=== PATIENT | female | born 1950 | race Two or more races ===

== ENCOUNTER 2020-06-21 06:47 | Inpatient (IN) | payer MEDICAID ==
[~2020-06-21] VITALS: Ht 160 cm; Wt 101.6 kg
[2020-06-21] MEDS ORDERED: DexAMETHasone SOD PHOS 10MG/1ML VIAL INJ IV ONE (07:30)
[2020-06-21] MEDS ORDERED: ONDANSETRON HCL 4 MG/2 ML VIAL ONE (07:44)
[2020-06-21] MEDS ORDERED: ACETAMINOPHEN 500 MG TAB PO ONE ×2 (08:14→08:30)
[2020-06-21] MEDS ORDERED: ONDANSETRON HCL 4 MG/2 ML VIAL IV ONE (08:30)
[2020-06-21 08:59] LABS: Basophils # (auto) 0 10 ^3/uL (0-0.2); Basophils % (auto) 0.2 % (0.0-2.0); Eosinophils # (auto) 0 10 ^3/uL (0-0.8); Hematocrit 42.9 % (36.0-46.0); Hemoglobin 13.9 g/dL (12.2-16.2); Lymphocytes # (auto) 1.9 10 ^3/uL (0.4-5.4); Lymphocytes % (auto) 10.3 % (10.0-50.0); Mean Corpuscular Hgb Conc. 32.4 g/dL (32.0-36.0); Mean Corpuscular Volume 89.4 fL (80.0-100.0); Monocytes # (auto) 1.7 10 ^3/uL (0-1.3); Monocytes % (auto) 9.5 % (0.0-12.0); Neutrophils # (auto) 14.7 10 ^3/uL (1.6-8.6); Nucleated Red Blood Cells % 0.1 %; Platelet Count (auto) 300 10^3/uL (140-450); Red Blood Cells 4.79 10^6/uL (4.0-5.20); Red Cell Distribution Width 13.8 % (11.8-14.3); White Blood Cell 18.4 10^3/uL (4.4-10.8)
[2020-06-21 09:42] LABS: CRP High Sensitivity 9.45 mg/dL (< 0.3)
[2020-06-21] MEDS ORDERED: DOXYCYCLINE 100MG/250ML 250 ML IV ONE (10:30)
[2020-06-21 10:41] LABS: Albumin 2.7 g/dL (3.4-5.0); Calcium 8.7 mg/dL (8.5-10.1); Potassium 3.8 mmol/L (3.5-5.1)
[2020-06-21 10:44] LABS: BUN/Creatinine Ratio 16.7; Bilirubin, Total 0.9 mg/dL (0.2-1.0); Total Protein 7.3 g/dL (6.4-8.2)
[2020-06-21] MEDS ORDERED: FUROSEMIDE 20 MG/2 ML VIAL IV ONE (11:15)
[2020-06-21] MEDS ORDERED: NITROGLYCERIN 0.4 MG SL TAB SL PRN (11:15)
[2020-06-21] MEDS ORDERED: MORPHINE SULFATE 4 MG/ML SYR/VIAL IV PRN (11:15)
[2020-06-21] MEDS ORDERED: MORPHINE SULF INJ 2 MG/ML SYRINGE 1ML IV PRN (11:15)
[2020-06-21] MEDS ORDERED: LORazepam 2MG/ML-1ML VIAL IV PRN (11:15)
[2020-06-21] MEDS ORDERED: VANCOMYCIN PER PHARMACY 1,000 MG IV SCH (11:15)
[2020-06-21] MEDS ORDERED: ENOXAPARIN SOD 100 MG/1 ML SYRINGE SC ONE (11:15)
[2020-06-21] MEDS ORDERED: ACETAMINOPHEN 500 MG TAB PO PRN (11:15)
[2020-06-21] MEDS ORDERED: LACTATED RINGER'S 1,000 ML IV ONE (11:15)
[2020-06-21] MEDS ORDERED: ACETAMINOPHEN 325 MG TAB PO PRN (11:15)
[2020-06-21] MEDS: SODIUM CHLORIDE 0.9% 1,000 ML IV SCH ×2 (12:12→22:52)
[2020-06-21] MEDS: HYDROCORTISONE SOD SUCC 100 MG/2ML INJ VIAL IV SCH ×3 (12:13→22:50)
[2020-06-21] MEDS: PIPERACILLIN-TAZOB 3.375GM 100 ML IV SCH ×3 (12:25→22:51)
[2020-06-21] MEDS ORDERED: DEXTROSE (50%) 50ML SYRG IV PRN (12:30)
[2020-06-21 13:29] LABS: INR 0.97 (0.9-1.15)
[2020-06-21 13:36] LABS: Cholesterol 173 mg/dL (< 200); HDL Cholesterol 39 mg/dL (40-59); LDL Cholesterol 109 mg/dL (< 100); Triglycerides 126 mg/dL (< 150)
[2020-06-21] MEDS ORDERED: ACET1CAP14 PO (13:50)
[2020-06-21] MEDS: ALBUTEROL SULF HFA 90MCG INH 200DOSE IN SCH ×2 (14:00→22:37)
[2020-06-21 14:14] VITALS: BP 119/71
[2020-06-21] MEDS: VANCOMYCIN 500 MG in D5W 5% 100 ML IV SCH (15:29)
[2020-06-21] MEDS: InsuLIN REG 1unit/0.01ml Soln (100units/ml) SC SCH ×2 (17:00→22:39)
[2020-06-21] MEDS: ACCU-CHEK COMFORT CURVE STRIP VI SCH ×2 (17:40→21:54)
[2020-06-21] MEDS: FUROSEMIDE 20 MG/2 ML VIAL IV SCH (17:40)
[2020-06-21] MEDS: ATORVASTATIN 20 MG TAB PO SCH (21:54)
[2020-06-21] MEDS: BUDESONIDE (INHALATION) 180 MCG IH IN SCH (22:37)
[2020-06-21] MEDS: ENOXAPARIN SOD 100 MG/1 ML SYRINGE SC SCH (22:38)
[2020-06-22] MEDS: VANCOMYCIN 500 MG in D5W 5% 100 ML IV SCH ×2 (03:04→17:00)
[2020-06-22 04:34] LABS: Urine Bacteria FEW /hpf (None Seen); Urine Blood Negative /uL (Negative); Urine Hyaline Cast FEW /lpf (0 - 2); Urine Mucus FEW (None Seen); Urine Specific Gravity 1.014 (1.001-1.035); Urine WBC <1 /hpf (0 - 5)
[2020-06-22] MEDS: InsuLIN REG 1unit/0.01ml Soln (100units/ml) SC SCH ×4 (06:46→22:20)
[2020-06-22] MEDS: FUROSEMIDE 20 MG/2 ML VIAL IV SCH ×2 (06:48→19:03)
[2020-06-22] MEDS: PIPERACILLIN-TAZOB 3.375GM 100 ML IV SCH ×3 (06:48→19:04)
[2020-06-22] MEDS: ACCU-CHEK COMFORT CURVE STRIP VI SCH ×4 (06:49→22:13)
[2020-06-22] MEDS: BUDESONIDE (INHALATION) 180 MCG IH IN SCH ×2 (06:49→21:40)
[2020-06-22] MEDS: ALBUTEROL SULF HFA 90MCG INH 200DOSE IN SCH ×3 (06:49→21:40)
[2020-06-22 07:02] LABS: Basophils # (auto) 0.1 10 ^3/uL (0-0.2); Basophils % (auto) 0.4 % (0.0-2.0); Eosinophils # (auto) 0 10 ^3/uL (0-0.8); Hematocrit 40.9 % (36.0-46.0); Hemoglobin 13.4 g/dL (12.2-16.2); Lymphocytes # (auto) 1.1 10 ^3/uL (0.4-5.4); Lymphocytes % (auto) 7.4 % (10.0-50.0); Mean Corpuscular Hemoglobin 29.1 pg (28.0-32.0); Mean Corpuscular Hgb Conc. 32.8 g/dL (32.0-36.0); Mean Corpuscular Volume 88.6 fL (80.0-100.0); Monocytes # (auto) 0.9 10 ^3/uL (0-1.3); Monocytes % (auto) 6.6 % (0.0-12.0); Neutrophils # (auto) 12.2 10 ^3/uL (1.6-8.6); Neutrophils % (auto) 85.6 % (37.0-80.0); Platelet Count (auto) 310 10^3/uL (140-450); Red Blood Cells 4.62 10^6/uL (4.0-5.20); Red Cell Distribution Width 13.9 % (11.8-14.3); White Blood Cell 14.2 10^3/uL (4.4-10.8)
[2020-06-22 07:24] LABS: Albumin 2.5 g/dL (3.4-5.0); Calcium 8.4 mg/dL (8.5-10.1)
[2020-06-22 07:28] LABS: BUN/Creatinine Ratio 12.3; Bilirubin, Total 0.7 mg/dL (0.2-1.0); Total Protein 7.3 g/dL (6.4-8.2)
[2020-06-22] MEDS: HYDROCORTISONE SOD SUCC 100 MG/2ML INJ VIAL IV SCH ×2 (08:23→12:00)
[2020-06-22] MEDS: ENOXAPARIN SOD 100 MG/1 ML SYRINGE SC SCH ×2 (10:13→22:13)
[2020-06-22] MEDS: CHOLECALCIFEROL (VITD3) 2,000 UNIT CAP PO SCH (10:13)
[2020-06-22] MEDS: ZINC SULFATE 220mg CAP or TAB PO SCH (10:13)
[2020-06-22] MEDS: ASCORBIC ACID 1,000 MG TAB PO SCH (10:13)
[2020-06-22 16:50] VITALS: BP 106/53
[2020-06-22] MEDS: SODIUM CHLORIDE 0.9% 1,000 ML IV SCH (17:00)
[2020-06-22 22:00] VITALS: BP 117/56
[2020-06-22] MEDS: ATORVASTATIN 20 MG TAB PO SCH (22:13)
[2020-06-23] MEDS: VANCOMYCIN 500 MG in D5W 5% 100 ML IV SCH (03:00)
[2020-06-23] MEDS: SODIUM CHLORIDE 0.9% 1,000 ML IV SCH ×2 (03:15→16:35)
[2020-06-23 05:00] VITALS: BP 118/70
[2020-06-23] MEDS: PIPERACILLIN-TAZOB 3.375GM 100 ML IV SCH ×4 (06:00→17:26)
[2020-06-23] MEDS: FUROSEMIDE 20 MG/2 ML VIAL IV SCH ×2 (06:00→17:50)
[2020-06-23] MEDS: InsuLIN REG 1unit/0.01ml Soln (100units/ml) SC SCH ×4 (06:26→21:54)
[2020-06-23] MEDS: ACCU-CHEK COMFORT CURVE STRIP VI SCH ×4 (06:26→22:00)
[2020-06-23] MEDS ORDERED: POTASSIUM CHL 20 Meq TABLET PO ONE (06:45)
[2020-06-23 06:50] LABS: Basophils # (auto) 0 10 ^3/uL (0-0.2); Basophils % (auto) 0.3 % (0.0-2.0); Eosinophils # (auto) 0 10 ^3/uL (0-0.8); Eosinophils % (auto) 0.2 % (0.0-7.0); Hematocrit 39.6 % (36.0-46.0); Hemoglobin 13.1 g/dL (12.2-16.2); Lymphocytes # (auto) 2.3 10 ^3/uL (0.4-5.4); Lymphocytes % (auto) 16.6 % (10.0-50.0); Mean Corpuscular Hemoglobin 29.1 pg (28.0-32.0); Monocytes # (auto) 0.9 10 ^3/uL (0-1.3); Monocytes % (auto) 6.4 % (0.0-12.0); Neutrophils # (auto) 10.8 10 ^3/uL (1.6-8.6); Neutrophils % (auto) 76.5 % (37.0-80.0); Nucleated Red Blood Cells % 0.1 %; Platelet Count (auto) 356 10^3/uL (140-450); Red Cell Distribution Width 13.7 % (11.8-14.3); White Blood Cell 14.1 10^3/uL (4.4-10.8)
[2020-06-23 06:58] LABS: Calcium 8.5 mg/dL (8.5-10.1)
[2020-06-23 07:00] LABS: BUN/Creatinine Ratio 10.8
[2020-06-23 07:39] LABS: Potassium 2.8 mmol/L (3.5-5.1)
[2020-06-23 08:00] VITALS: BP 118/70
[2020-06-23 09:00] VITALS: BP 121/64
[2020-06-23] MEDS: DexAMETHasone SOD PHOS 10MG/1ML VIAL INJ IV SCH (09:55)
[2020-06-23] MEDS: ZINC SULFATE 220mg CAP or TAB PO SCH (09:55)
[2020-06-23] MEDS: ASCORBIC ACID 1,000 MG TAB PO SCH (09:55)
[2020-06-23] MEDS: CHOLECALCIFEROL (VITD3) 2,000 UNIT CAP PO SCH (09:56)
[2020-06-23] MEDS: ENOXAPARIN SOD 100 MG/1 ML SYRINGE SC SCH ×2 (09:56→22:00)
[2020-06-23] MEDS: ALBUTEROL SULF HFA 90MCG INH 200DOSE IN SCH ×3 (12:38→23:46)
[2020-06-23] MEDS: BUDESONIDE (INHALATION) 180 MCG IH IN SCH ×2 (12:39→23:46)
[2020-06-23 13:07] VITALS: BP 134/63
[2020-06-23] MEDS ORDERED: POTASSIUM EFFERVESENT TAB 25 MEQ PO ONE (14:15)
[2020-06-23] MEDS: VANCOMYCIN 1GM/250ML 250 ML IV SCH (15:08)
[2020-06-23 17:00] VITALS: BP 115/60
[2020-06-23 20:48] VITALS: BP 107/54
[2020-06-23] MEDS: ATORVASTATIN 20 MG TAB PO SCH (22:00)
[2020-06-24] MEDS: PIPERACILLIN-TAZOB 3.375GM 100 ML IV SCH ×5 (00:17→23:37)
[2020-06-24] MEDS: VANCOMYCIN 1GM/250ML 250 ML IV SCH ×3 (03:00→17:06)
[2020-06-24 05:00] VITALS: BP 102/50
[2020-06-24] MEDS: SODIUM CHLORIDE 0.9% 1,000 ML IV SCH ×2 (05:55→17:07)
[2020-06-24] MEDS: InsuLIN REG 1unit/0.01ml Soln (100units/ml) SC SCH ×4 (06:10→22:00)
[2020-06-24] MEDS: ACCU-CHEK COMFORT CURVE STRIP VI SCH ×4 (06:17→22:53)
[2020-06-24 07:16] LABS: BUN/Creatinine Ratio 9.5; Calcium 8.7 mg/dL (8.5-10.1); Potassium 3.4 mmol/L (3.5-5.1)
[2020-06-24 07:20] LABS: Basophils # (auto) 0 10 ^3/uL (0-0.2); Basophils % (auto) 0.2 % (0.0-2.0); Eosinophils # (auto) 0 10 ^3/uL (0-0.8); Eosinophils % (auto) 0.2 % (0.0-7.0); Hematocrit 37.5 % (36.0-46.0); Hemoglobin 12.6 g/dL (12.2-16.2); Lymphocytes # (auto) 1.9 10 ^3/uL (0.4-5.4); Lymphocytes % (auto) 22.8 % (10.0-50.0); Mean Corpuscular Hemoglobin 29.9 pg (28.0-32.0); Mean Corpuscular Hgb Conc. 33.6 g/dL (32.0-36.0); Mean Corpuscular Volume 89.1 fL (80.0-100.0); Monocytes # (auto) 0.9 10 ^3/uL (0-1.3); Monocytes % (auto) 10.7 % (0.0-12.0); Neutrophils # (auto) 5.5 10 ^3/uL (1.6-8.6); Neutrophils % (auto) 66.1 % (37.0-80.0); Platelet Count (auto) 357 10^3/uL (140-450); Red Blood Cells 4.21 10^6/uL (4.0-5.20); Red Cell Distribution Width 13.8 % (11.8-14.3); White Blood Cell 8.3 10^3/uL (4.4-10.8)
[2020-06-24] MEDS: FUROSEMIDE 20 MG/2 ML VIAL IV SCH ×2 (07:25→17:07)
[2020-06-24] MEDS: BUDESONIDE (INHALATION) 180 MCG IH IN SCH ×2 (07:27→22:10)
[2020-06-24] MEDS: ALBUTEROL SULF HFA 90MCG INH 200DOSE IN SCH ×3 (07:27→22:09)
[2020-06-24] MEDS: ZINC SULFATE 220mg CAP or TAB PO SCH (08:58)
[2020-06-24] MEDS: CHOLECALCIFEROL (VITD3) 2,000 UNIT CAP PO SCH (08:59)
[2020-06-24 09:00] VITALS: BP 125/62
[2020-06-24] MEDS: ASCORBIC ACID 1,000 MG TAB PO SCH (09:00)
[2020-06-24] MEDS: ENOXAPARIN SOD 100 MG/1 ML SYRINGE SC SCH ×2 (09:01→22:53)
[2020-06-24] MEDS: DexAMETHasone SOD PHOS 10MG/1ML VIAL INJ IV SCH (09:02)
[2020-06-24 10:06] VITALS: BP 125/62
[2020-06-24 12:00] VITALS: BP 130/81
[2020-06-24 16:00] VITALS: BP 131/69
[2020-06-24] MEDS ORDERED: POTASSIUM EFFERVESENT TAB 25 MEQ PO ONE (16:15)
[2020-06-24] MEDS: NYSTATIN (MOUTH-THROAT) 500,000 UNITS/5 ML SUSP MT SCH ×2 (17:26→22:52)
[2020-06-24] MEDS: ATORVASTATIN 20 MG TAB PO SCH (22:53)
[2020-06-24 23:30] VITALS: BP 116/64
[2020-06-25] MEDS: VANCOMYCIN 1GM/250ML 250 ML IV SCH ×2 (04:40→17:46)
[2020-06-25] MEDS: FUROSEMIDE 20 MG/2 ML VIAL IV SCH ×2 (05:47→18:13)
[2020-06-25] MEDS: ACCU-CHEK COMFORT CURVE STRIP VI SCH ×4 (05:47→21:56)
[2020-06-25] MEDS: NYSTATIN (MOUTH-THROAT) 500,000 UNITS/5 ML SUSP MT SCH ×4 (05:47→21:55)
[2020-06-25] MEDS: InsuLIN REG 1unit/0.01ml Soln (100units/ml) SC SCH ×4 (05:48→21:58)
[2020-06-25 05:50] LABS: Basophils # (auto) 0 10 ^3/uL (0-0.2); Basophils % (auto) 0.4 % (0.0-2.0); Eosinophils # (auto) 0 10 ^3/uL (0-0.8); Eosinophils % (auto) 0.2 % (0.0-7.0); Hematocrit 36.5 % (36.0-46.0); Hemoglobin 12.2 g/dL (12.2-16.2); Lymphocytes # (auto) 2.1 10 ^3/uL (0.4-5.4); Lymphocytes % (auto) 18.7 % (10.0-50.0); Mean Corpuscular Hemoglobin 29.7 pg (28.0-32.0); Mean Corpuscular Hgb Conc. 33.4 g/dL (32.0-36.0); Monocytes % (auto) 8.7 % (0.0-12.0); Neutrophils # (auto) 8.2 10 ^3/uL (1.6-8.6); Platelet Count (auto) 342 10^3/uL (140-450); Red Cell Distribution Width 13.7 % (11.8-14.3); White Blood Cell 11.4 10^3/uL (4.4-10.8)
[2020-06-25 05:52] VITALS: BP 119/65
[2020-06-25] MEDS: PIPERACILLIN-TAZOB 3.375GM 100 ML IV SCH ×4 (06:03→23:57)
[2020-06-25 06:07] LABS: Albumin 2.2 g/dL (3.4-5.0); Calcium 8.5 mg/dL (8.5-10.1); Potassium 3.3 mmol/L (3.5-5.1)
[2020-06-25 06:10] LABS: BUN/Creatinine Ratio 14.1; Bilirubin, Total 0.6 mg/dL (0.2-1.0); Total Protein 6.3 g/dL (6.4-8.2)
[2020-06-25] MEDS: BUDESONIDE (INHALATION) 180 MCG IH IN SCH ×2 (07:12→23:04)
[2020-06-25] MEDS: ALBUTEROL SULF HFA 90MCG INH 200DOSE IN SCH ×3 (07:12→23:05)
[2020-06-25] MEDS: SODIUM CHLORIDE 0.9% 1,000 ML IV SCH ×2 (08:35→21:56)
[2020-06-25 09:00] VITALS: BP 123/55
[2020-06-25] MEDS: DexAMETHasone SOD PHOS 10MG/1ML VIAL INJ IV SCH (09:13)
[2020-06-25] MEDS: ENOXAPARIN SOD 100 MG/1 ML SYRINGE SC SCH ×2 (09:14→21:55)
[2020-06-25] MEDS: CHOLECALCIFEROL (VITD3) 2,000 UNIT CAP PO SCH (09:14)
[2020-06-25] MEDS: ASCORBIC ACID 1,000 MG TAB PO SCH (09:14)
[2020-06-25] MEDS: ZINC SULFATE 220mg CAP or TAB PO SCH (09:14)
[2020-06-25] MEDS: POTASSIUM CHL 20 Meq TABLET PO SCH ×2 (11:58→14:32)
[2020-06-25 12:41] VITALS: BP 130/71
[2020-06-25 16:48] VITALS: BP 112/76
[2020-06-25 21:30] VITALS: BP 117/63
[2020-06-25] MEDS: ATORVASTATIN 20 MG TAB PO SCH (21:55)
[2020-06-26 05:00] VITALS: BP 111/54
[2020-06-26] MEDS: VANCOMYCIN 1GM/250ML 250 ML IV SCH (05:06)
[2020-06-26] MEDS: NYSTATIN (MOUTH-THROAT) 500,000 UNITS/5 ML SUSP MT SCH ×4 (06:01→21:48)
[2020-06-26] MEDS: FUROSEMIDE 20 MG/2 ML VIAL IV SCH ×2 (06:02→18:13)
[2020-06-26] MEDS: ACCU-CHEK COMFORT CURVE STRIP VI SCH ×4 (06:12→21:54)
[2020-06-26] MEDS: InsuLIN REG 1unit/0.01ml Soln (100units/ml) SC SCH ×4 (06:14→21:59)
[2020-06-26 06:19] LABS: Basophils # (auto) 0 10 ^3/uL (0-0.2); Basophils % (auto) 0.1 % (0.0-2.0); Eosinophils # (auto) 0.1 10 ^3/uL (0-0.8); Eosinophils % (auto) 0.5 % (0.0-7.0); Hemoglobin 12.1 g/dL (12.2-16.2); Lymphocytes # (auto) 2.5 10 ^3/uL (0.4-5.4); Lymphocytes % (auto) 20.5 % (10.0-50.0); Mean Corpuscular Hemoglobin 29.8 pg (28.0-32.0); Mean Corpuscular Hgb Conc. 33.6 g/dL (32.0-36.0); Mean Corpuscular Volume 88.6 fL (80.0-100.0); Monocytes # (auto) 1.1 10 ^3/uL (0-1.3); Monocytes % (auto) 8.7 % (0.0-12.0); Neutrophils # (auto) 8.5 10 ^3/uL (1.6-8.6); Neutrophils % (auto) 70.2 % (37.0-80.0); Nucleated Red Blood Cells % 0.1 %; Platelet Count (auto) 402 10^3/uL (140-450); Red Blood Cells 4.06 10^6/uL (4.0-5.20); Red Cell Distribution Width 13.8 % (11.8-14.3); White Blood Cell 12.2 10^3/uL (4.4-10.8)
[2020-06-26] MEDS: PIPERACILLIN-TAZOB 3.375GM 100 ML IV SCH ×2 (06:22→12:13)
[2020-06-26 06:31] LABS: INR 1.01 (0.9-1.15); Partial Thromboplastin Time 32.6 sec (23.0-31.2)
[2020-06-26 06:37] LABS: Albumin 2.3 g/dL (3.4-5.0); Calcium 8.7 mg/dL (8.5-10.1); Magnesium 2.3 mg/dL (1.6-2.6); Potassium 3.8 mmol/L (3.5-5.1)
[2020-06-26 06:41] LABS: BUN/Creatinine Ratio 14.7; Bilirubin, Total 0.6 mg/dL (0.2-1.0); Phosphorus 3.2 mg/dL (2.5-4.90); Total Protein 6.2 g/dL (6.4-8.2)
[2020-06-26] MEDS: BUDESONIDE (INHALATION) 180 MCG IH IN SCH ×2 (07:10→22:52)
[2020-06-26] MEDS: ALBUTEROL SULF HFA 90MCG INH 200DOSE IN SCH ×3 (07:10→22:52)
[2020-06-26 08:22] VITALS: BP 143/84
[2020-06-26] MEDS: ZINC SULFATE 220mg CAP or TAB PO SCH (08:45)
[2020-06-26] MEDS: POTASSIUM CHL 20 Meq TABLET PO SCH (08:45)
[2020-06-26] MEDS: DexAMETHasone SOD PHOS 10MG/1ML VIAL INJ IV SCH (08:45)
[2020-06-26] MEDS: ASCORBIC ACID 1,000 MG TAB PO SCH (08:46)
[2020-06-26] MEDS: CHOLECALCIFEROL (VITD3) 2,000 UNIT CAP PO SCH (08:46)
[2020-06-26] MEDS: ENOXAPARIN SOD 100 MG/1 ML SYRINGE SC SCH (08:47)
[2020-06-26] MEDS: SODIUM CHLORIDE 0.9% 1,000 ML IV SCH (11:15)
[2020-06-26 13:10] VITALS: BP 113/65
[2020-06-26] MEDS ORDERED: FUROSEMIDE 40 MG/4 ML VIAL IV ONE (13:30)
[2020-06-26] MEDS ORDERED: POTASSIUM CHL 20 Meq TABLET PO ONE (13:30)
[2020-06-26] MEDS ORDERED: ENOXAPARIN SOD 40 MG/0.4 ML SYRINGE SC ONE (13:45)
[2020-06-26] MEDS ORDERED: ALBUAER3 IN (14:46)
[2020-06-26] MEDS ORDERED: DOX100T PO (14:46)
[2020-06-26] MEDS ORDERED: FURO40TA4 PO (14:46)
[2020-06-26] MEDS ORDERED: CHOL1CAP47 PO (14:46)
[2020-06-26] MEDS ORDERED: ASCO10003 PO (14:46)
[2020-06-26] MEDS ORDERED: METF-370 PO (14:46)
[2020-06-26] MEDS ORDERED: POTA-220 PO (14:46)
[2020-06-26 17:00] VITALS: BP 142/87
[2020-06-26] MEDS: metFORMIN HYDROCHLORIDE 500 MG TAB PO SCH (18:12)
[2020-06-26] MEDS: DOXYCYCLINE 100 MG TAB/CAP PO SCH (21:48)
[2020-06-26 22:00] VITALS: BP 155/85
[2020-06-27 05:00] VITALS: BP 112/70
[2020-06-27] MEDS: FUROSEMIDE 20 MG/2 ML VIAL IV SCH (06:03)
[2020-06-27] MEDS: NYSTATIN (MOUTH-THROAT) 500,000 UNITS/5 ML SUSP MT SCH ×2 (06:03→12:18)
[2020-06-27] MEDS: InsuLIN REG 1unit/0.01ml Soln (100units/ml) SC SCH ×3 (06:17→17:00)
[2020-06-27] MEDS: ACCU-CHEK COMFORT CURVE STRIP VI SCH ×3 (06:17→18:38)
[2020-06-27] MEDS: ALBUTEROL SULF HFA 90MCG INH 200DOSE IN SCH ×2 (06:47→14:45)
[2020-06-27] MEDS: BUDESONIDE (INHALATION) 180 MCG IH IN SCH (06:47)
[2020-06-27] MEDS: metFORMIN HYDROCHLORIDE 500 MG TAB PO SCH (07:53)
[2020-06-27 08:00] VITALS: BP 120/73
[2020-06-27] MEDS: ZINC SULFATE 220mg CAP or TAB PO SCH (09:45)
[2020-06-27] MEDS: DexAMETHasone SOD PHOS 10MG/1ML VIAL INJ IV SCH (09:45)
[2020-06-27] MEDS: POTASSIUM CHL 20 Meq TABLET PO SCH (09:45)
[2020-06-27] MEDS: ASCORBIC ACID 1,000 MG TAB PO SCH (09:46)
[2020-06-27] MEDS: CHOLECALCIFEROL (VITD3) 2,000 UNIT CAP PO SCH (09:46)
[2020-06-27] MEDS: DOXYCYCLINE 100 MG TAB/CAP PO SCH (09:46)
[2020-06-27] MEDS ORDERED: ENOXAPARIN SOD 40 MG/0.4 ML SYRINGE SC SCH (10:00)
[2020-06-27 12:00] VITALS: BP 117/72
[2020-06-27 15:34] VITALS: BP 112/70
[2020-06-27 17:00] VITALS: BP 109/74
== END 2020-06-27 18:15 | disposition home or self-care (01) | DRG 720 ==
LOC: ER 06:47 → TELE 06:48 → TELE-E-ADS 06-22 14:16 → TELE-EAST 06-22 23:51
PROVIDERS: ADMIT Hospitalist; ATTEND Internal Medicine Pulmonary Disease
DX: A41.89 Other specified sepsis (principal); U07.1 COVID-19; E43 Unspecified severe protein-calorie malnutrition; J12.89 Other viral pneumonia; J96.01 Acute respiratory failure with hypoxia; R65.20 Severe sepsis without septic shock; E66.01 Morbid (severe) obesity due to excess calories; E78.5 Hyperlipidemia, unspecified; I10 Essential (primary) hypertension; M79.7 Fibromyalgia; T38.0X5A Adverse effect of glucocorticoids and synthetic analogues, initial encounter; Y92.89 Other specified places as the place of occurrence of the external cause; E11.65 Type 2 diabetes mellitus with hyperglycemia
CPT/HCPCS: 36415; 36600; 71045; 80048; 80053; 80061; 80202; 81001; 82553; 82728; 82805; 82962; 83036; 83605; 83615; 83735; 83880; 84100; 84443; 84484; 85025; 85379; 85610; 85730; 86141; 87040; 87081; 87086; 87426; 93005; 93970; 94640; 94660; 99291; G0378; J1100; J1815; J2405; J2543; J3490; J7060